=== PATIENT | female | born 1970 | race Two or more races ===

== ENCOUNTER 2018-01-21 08:23 | Emergency (ER) | payer MEDICAID ==
[~2018-01-21] VITALS: Ht 180.3 cm; Wt 63.5 kg
[~2018-01-21 08:23] MED LIST: AUGMENTIN 875-1 EAC1 ORAL; NAPROXEN500 M2 ORAL; NKM; NORCO 5-325 TA1 EACH ORAL
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
[2018-01-21] MEDS ORDERED: Ketorolac 30mg Inj IV ONE (08:45)
[2018-01-21 09:21] LABS: APPEARANCE,URINE CLEAR; BILIRUBIN, URINE NEGATIVE (NEGATIVE); COLOR,URINE PALE YELLOW; GLUCOSE, URINE (UA) NEGATIVE (NEGATIVE); KETONES,URINE 2+ (NEGATIVE); LEUKOCYTE ESTERASE ,URINE 2+ (NEGATIVE); NITRITE,URINE NEGATIVE (NEGATIVE); PH,URINE 5 (4.5-8.0); PROTEIN,URINE NEGATIVE (NEGATIVE); UROBILINOGEN,URINE NORMAL MG/DL (0.0-1.0)
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
[2018-01-21] MEDS ORDERED: cefTRIAXone 1 GM in NS 55 ML IVPB ONE (10:15)
[2018-01-21] MEDS ORDERED: Morphine Sulfate 4mg/ml Inj IVP ONE (10:45)
[2018-01-21] MEDS ORDERED: IBUPROFEN600 MG ORAL (11:27)
[2018-01-21] MEDS ORDERED: KEFLEX500 MG ORAL (11:27)
[2018-01-21] MEDS ORDERED: TRAMADOL HCL50 MG ORAL (11:27)
[2018-01-21 11:43] VITALS: BP 111/77
== END 2018-01-21 11:41 | disposition home or self-care (01) ==
LOC: EMR 08:41
DX: S02.651A Fracture of angle of right mandible, initial encounter for closed fracture (principal); S00.81XA Abrasion of other part of head, initial encounter; Y04.2XXA Assault by strike against or bumped into by another person, initial encounter; Y92.89 Other specified places as the place of occurrence of the external cause; N39.0 Urinary tract infection, site not specified; F19.10 Other psychoactive substance abuse, uncomplicated
CPT/HCPCS: 70450; 70486; 80307; 81001; 81025; 87086; 96361; 96365; 96375; 99284; J0696; J1885; J2270; J2405

== ENCOUNTER 2018-04-03 18:23 | Emergency (ER) | payer MEDICAID ==
[~2018-04-03] VITALS: Ht 180.3 cm; Wt 65.8 kg
[~2018-04-03 18:23] MED LIST changes: +IBUPROFEN600 MG ORAL; +KEFLEX500 MG ORAL; +TRAMADOL HCL50 MG ORAL
[2018-04-03 18:58] VITALS: BP 101/63
[2018-04-03] MEDS ORDERED: Norco 5mg/325mg tab PO ONE (19:00)
--- NOTE | 2018-04-03 19:35 | Diagnostic Imaging Report ---
EXAM: XR Chest, 1 View CLINICAL HISTORY: PAIN TECHNIQUE: Frontal view of the chest. COMPARISON: No relevant prior studies available. FINDINGS: Lungs: Mildly increased interstitial markings. The lungs are otherwise clear without focal consolidation. Pleural space: Unremarkable. No pneumothorax. Heart: Unremarkable. No cardiomegaly. Mediastinum: Unremarkable. Bones/joints: Unremarkable. Tubes, lines and devices: EKG leads overlie the thorax. IMPRESSION: Mildly increased interstitial markings. This is nonspecific and cannot exclude mild pulmonary vascular congestion or mild viral/interstitial pneumonitis.
[2018-04-03 19:44] VITALS: BP 115/62
[2018-04-03] MEDS ORDERED: IBUPROFEN600 MG ORAL (19:45)
[2018-04-03 19:47] VITALS: BP 115/62
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
== END 2018-04-03 19:47 | disposition home or self-care (01) ==
LOC: EMR 19:05
DX: S20.211A Contusion of right front wall of thorax, initial encounter (principal); W22.03XA Walked into furniture, initial encounter; Y92.9 Unspecified place or not applicable
CPT/HCPCS: 71045; 99283

== ENCOUNTER 2018-08-26 13:30 | Emergency (ER) | payer MEDICAID ==
[~2018-08-26] VITALS: Ht 180.3 cm; Wt 68.0 kg
[2018-08-26 13:55] VITALS: BP 102/68
[2018-08-26] MEDS ORDERED: Ketorolac 60mg Inj IM ONE (14:15)
[2018-08-26] MEDS ORDERED: LORazepam 1mg tab ORAL ONE (14:15)
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
[2018-08-26] MEDS ORDERED: IBUPROFEN600 MG ORAL (15:04)
[2018-08-26] MEDS ORDERED: CYCLOBENZAPRINE10 MG ORAL (15:57)
[2018-08-26 16:03] VITALS: BP 102/68
--- NOTE | 2018-08-26 16:37 | Diagnostic Imaging Report ---
Indication: Chest pain Comparison: 04/03/2018 2 views of the chest obtained. Findings: Cardiomediastinal silhouette and pulmonary vascularity are within normal limits for age. The diaphragmatic contour is smooth and costophrenic angles are sharp. No pleural effusions are identified. The bones are unremarkable. Impression: No acute disease
--- NOTE | 2018-08-26 16:37 | Diagnostic Imaging Report ---
Indication: Pain Knee pain/trauma 3 views of the right knee were obtained. Findings: No acute fracture, malalignment, or joint effusion are identified. Joint space is relatively well-maintained. The bones appear osteopenic. Impression: Negative for acute findings.
--- NOTE | 2018-08-26 16:37 | Diagnostic Imaging Report ---
Indication: Back pain Comparison: None Findings: 3 views of the lumbar spine were obtained. No acute fracture or malalignment is identified. Vertebral body heights and disk spaces are well maintained. Posterior elements are unremarkable. Impression: No acute findings.
== END 2018-08-26 16:04 | disposition home or self-care (01) ==
LOC: EMR 14:00
DX: M25.561 Pain in right knee (principal); V13.4XXA Pedal cycle driver injured in collision with car, pick-up truck or van in traffic accident, initial encounter; Y93.55 Activity, bike riding; Y92.410 Unspecified street and highway as the place of occurrence of the external cause; F31.9 Bipolar disorder, unspecified; F41.9 Anxiety disorder, unspecified
CPT/HCPCS: 71046; 72020; 81025; 96372; 99284

== ENCOUNTER 2019-01-11 10:10 | Emergency (ER) | payer MEDICAID ==
[~2019-01-11] VITALS: Ht 180.3 cm; Wt 59.0 kg
[~2019-01-11 10:10] MED LIST changes: +CYCLOBENZAPRINE10 MG ORAL
--- NOTE | 2019-01-11 10:13 | NUR ---
ED Nurse Note: CALLED PT FROM WAITING ROOM. PT NOT PRESENT.
[2019-01-11] MEDS ORDERED: NKM (10:20)
--- NOTE | 2019-01-11 10:28 | NUR ---
ED Nurse Note: Pt came into the ER w/ complaints of chest pain since this morning. Pt states that the pain is radiating to her lower back. Rating the pain an 8/10. Pt is also complaining of rt face swelling x 2 days. A +O x4. Ambulatory. Skin warm to touch. A marijuana smell is coming from the pt. Pt states that she smokes.
[2019-01-11 10:30] VITALS: BP 112/75
[2019-01-11] MEDS ORDERED: Augmentin 875mg Tab ORAL ONE (10:45)
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
[2019-01-11] MEDS ORDERED: AUGMENTIN 875-1 EAC1 ORAL (11:02)
[2019-01-11 11:13] VITALS: BP 104/77
--- NOTE | 2019-01-11 11:14 | NUR ---
ER DISCHARGE NOTE: Patient is cleared to be discharged per ERMD, pt is aox4, on room air, with stable vital signs. pt was given dc and prescription instructions, pt was able to verbalize understanding, pt id band removed without complications. pt is able to ambulate with steady gait. pt took all belongings.
--- NOTE | 2019-01-12 16:06 | Cardiology Report ---
APPROVED REPORT EKG Measurement Heart [id number] MT [id number] [id number] Normal sinus rhythm Normal ECG
== END 2019-01-11 11:14 | disposition home or self-care (01) ==
LOC: EMR 11:01
DX: B30.9 Viral conjunctivitis, unspecified (principal); R07.89 Other chest pain
CPT/HCPCS: 93005; 99283

== ENCOUNTER 2019-07-05 09:22 | Emergency (ER) | payer MEDICAID ==
[~2019-07-05] VITALS: Ht 180.3 cm; Wt 65.8 kg
--- NOTE | 2019-07-05 09:26 | NUR ---
ED Nurse Note: Patient in restroom.
[2019-07-05 09:30] VITALS: BP 117/70
--- NOTE | 2019-07-05 09:30 | NUR ---
ED Nurse Note: pt walked in to ED due to lower back pain since yesterday. pt denies any injury or urinary problem. pt c/o frequent urination. per pt, lifted heavy objects at work. ambulatory with steady gait. came with friend. AAO x4. respirations even and non-labored noted. will wait for the further order.
[2019-07-05] MEDS ORDERED: Ketorolac 60mg Inj IM ONE (10:00)
[2019-07-05 10:36] LABS: APPEARANCE,URINE SLIGHTLY CLOUDY; BILIRUBIN, URINE NEGATIVE (NEGATIVE); COLOR,URINE AMBER; GLUCOSE, URINE (UA) NEGATIVE (NEGATIVE); KETONES,URINE NEGATIVE (NEGATIVE); LEUKOCYTE ESTERASE ,URINE 1+ (NEGATIVE); NITRITE,URINE NEGATIVE (NEGATIVE); PH,URINE 6 (4.5-8.0); PROTEIN,URINE 1+ (NEGATIVE); UROBILINOGEN,URINE 4 MG/DL (0.0-1.0)
--- NOTE | 2019-07-05 10:39 | Emergency Room Report ---
History of Present Illness General Chief Complaint: Lower Back Pain or Injury Source: Patient Present Illness HPI The patient presents with increased back pain. She denies any significant trauma. 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 She has had intermittent pain. She has been evaluated for this pain in the past with x-rays that were apparently normal. Patient denies any fevers, dysuria. Her periods are irregular but the last one was normal for her. She does not believe she is . Pain radiates somewhat down her left leg. She denies weakness or numbness. There is no saddle paresthesias and she denies incontinence of urine or stool. She is not taking of blood thinner, no IV drug abuse, no oncologic problems. She denies dysuria. Her significant other says that she does not drink enough water. 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 Last Menstrual Period: 06/29/19 Reviewed Nursing Documentation: PMH: Agreed; PSxH: Agreed Nursing Documentation-PMH Past Medical History: No Stated History Review of Systems Constitutional: Reports: see HPI Cardiovascular: Denies: chest pain Gastrointestinal: Denies: abdominal pain Genitourinary: Reports: see HPI Musculoskeletal: Reports: see HPI Skin: Denies: rash Neurological: Reports: see HPI Hematologic/Lymphatic: Reports: see HPI Physical Exam Vital Signs Date Time Temp Pulse Resp B/P (MAP) Pulse Ox O2 Delivery O2 Flow Rate FiO2 07/05/19 09:30 97.5 73 18 117/70 (86) 98 Room Air Sp02 EP Interpretation: reviewed, normal General Appearance: well appearing, no apparent distress, GCS 15 Head: normocephalic, atraumatic Eyes: bilateral eye normal inspection, bilateral eye PERRL, bilateral eye EOMI ENT: moist mucus membranes Neck: supple Respiratory: lungs clear, normal breath sounds Cardiovascular #1: regular rate, rhythm Cardiovascular #2: 2+ radial (R) Gastrointestinal: normal inspection, normal bowel sounds, non tender, no mass, non-distended Genitourinary: no CVA tenderness Musculoskeletal: gait/station normal, normal range of motion, tender - Lumbar area with paraspinous spasm. Straight leg raise positive for increased back pain on the left-hand side. No paresthesias or referred pain down the leg. No crossover pain with straight leg raise on the right Neurologic: alert, oriented x3, motor strength/tone normal, DTRs symmetric, sensory intact, cerebellar normal, normal gait, speech normal Psychiatric: mood/affect normal Skin: no rash Medical Decision Making Diagnostic Impression: Primary Impression: Lumbar pain Additional Impression: UTI (urinary tract infection) Qualified Codes: N30.00 - Acute cystitis without hematuria ER Course Patient presents with exacerbation of lumbar pain. There are no red flag symptoms. She has had normal x-rays in the past. Differential includes degenerative disc disease, sciatica, exacerbation of chronic back pain, back strain, UTI amongst others. Patient will be evaluated with urinalysis. She will be treated with a shot of Toradol and given a pill of Soma. Urinalysis with pyuria. Macrobid begun. Patient improved with treatment. Ambulatory without difficulty and able to sit and stand without limitation. Discussed results with patient. Advised to physical therapy and back exercises can help. She was advised to follow-up with her own doctor. Patient stable for outpatient observation and treatment. Laboratory Tests Test 07/05/19 10:11 Urine Color Evelyn Urine Appearance Slightly cloudy Urine pH 6 (4.5-8.0) Urine Specific [place] 1.020 (1.005-1.035) Urine Protein 1+ (NEGATIVE) H Urine Glucose (UA) Negative (NEGATIVE) Urine Ketones Negative (NEGATIVE) Urine Blood 4+ (NEGATIVE) H Urine Nitrite Negative (NEGATIVE) Urine Bilirubin Negative (NEGATIVE) Urine Ictotest Negative (NEGATIVE) Urine Urobilinogen 4 MG/DL (0.0-1.0) H Urine Leukocyte Esterase 1+ (NEGATIVE) H Urine RBC 10-15 /HPF (0 - 2) H Urine WBC 10-15 /HPF (0 - 2) H Urine Squamous Epithelial Cells Many /LPF (NONE/OCC) H Urine Bacteria Few /HPF (NONE) Urine HCG, Qualitative Negative (NEGATIVE) Last Vital Signs Date Time Temp Pulse Resp B/P (MAP) Pulse Ox O2 Delivery O2 Flow Rate FiO2 07/05/19 11:41 98.1 70 16 121/71 99 Room Air Status: improved Disposition: HOME, SELF-CARE Condition: Improved Scripts Ibuprofen* (MOTRIN*) 600 Mg Tablet 600 MG ORAL Q6H PRN for For Pain, #20 TAB 0 Refills Prov: Basil Mckenzie MD 07/05/19 Acetaminophen With Codeine (T#3) (TYLENOL #3 TAB*) Y Tab 1 TAB ORAL Q6HR PRN for For Pain, #10 TAB Prov: Basil Mckenzie MD 07/05/19 Methocarbamol* (ROBAXIN*) 500 Mg Tablet 500 MG PO TID PRN for spasms, #10 TAB 0 Refills Prov: Basil Mckenzie MD 07/05/19 Nitrofurantoin Monohyd/M-Cryst* (MACROBID 100 MG*) 100 Mg Capsule 100 MG ORAL EVERY 12 HOURS, #14 CAP Prov: Basil Mckenzie MD 07/05/19 Basil Mckenzie MD Jul 05, 2019 10:39
[2019-07-05] MEDS ORDERED: ACETAMINOPHEN-1 EAC1 ORAL (11:34)
[2019-07-05] MEDS ORDERED: IBUPROFEN600 MG ORAL (11:34)
[2019-07-05] MEDS ORDERED: NITROFURANTOIN100 M2 ORAL (11:34)
[2019-07-05] MEDS ORDERED: ROBAXIN500 MG PO (11:34)
[2019-07-05 11:41] VITALS: BP 121/71
--- NOTE | 2019-07-05 11:42 | NUR ---
ER DISCHARGE NOTE: Patient is cleared to be discharged per ERMD with family member, pt is aox4, on room air, with stable vital signs. pt was given dc and prescription instructions, pt was able to verbalize understanding, pt id band removed without complications. pt is able to ambulate with steady gait. pt took all belongings.
== END 2019-07-05 11:43 | disposition home or self-care (01) ==
LOC: EMR 10:20
DX: M54.5 Low back pain (principal); N30.00 Acute cystitis without hematuria; M79.605 Pain in left leg; F17.200 Nicotine dependence, unspecified, uncomplicated
CPT/HCPCS: 81003; 81025; 87086; 96372; 99283

== ENCOUNTER 2019-07-10 17:39 | Emergency (ER) | payer MEDICAID ==
[~2019-07-10] VITALS: Ht 180.3 cm; Wt 68.0 kg
[~2019-07-10 17:39] MED LIST changes: +ACETAMINOPHEN-1 EAC1 ORAL; +NITROFURANTOIN100 M2 ORAL; +ROBAXIN500 MG PO
[2019-07-10] MEDS ORDERED: NKM (17:48)
[2019-07-10 17:50] VITALS: BP 143/88
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
--- NOTE | 2019-07-10 18:20 | NUR ---
ED Nurse Note: pt medicated as ordered. pt able to tolerate meds. will continue to monitor.
[2019-07-10] MEDS ORDERED: BACITRACIN15 GM TOPIC (18:26)
[2019-07-10] MEDS ORDERED: TYLENOL EXTRA500 MG ORAL (18:26)
[2019-07-10] MEDS ORDERED: AMOXICILLIN500 MG ORAL (18:26)
[2019-07-10] MEDS ORDERED: Acetaminophen 500mg (ES) tab ORAL ONE (18:30)
[2019-07-10] MEDS ORDERED: Neosporin Oint Ud Pkt TOPIC ONE (18:30)
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
== END 2019-07-10 18:34 | disposition home or self-care (01) ==
LOC: EMR 18:34
DX: S00.33XA Contusion of nose, initial encounter (principal); S01.511A Laceration without foreign body of lip, initial encounter; Y04.8XXA Assault by other bodily force, initial encounter
CPT/HCPCS: 99283

== ENCOUNTER 2020-11-22 10:15 | Emergency (ER) | payer MEDICAID, OTHER ==
[~2020-11-22] VITALS: Ht 180.3 cm; Wt 68.0 kg
[~2020-11-22 10:15] MED LIST changes: +AMOXICILLIN500 MG ORAL; +BACITRACIN15 GM TOPIC; +TYLENOL EXTRA500 MG ORAL
--- NOTE | 2020-11-22 10:37 | Emergency Room Report ---
History of Present Illness General Chief Complaint: Flu Like Symptoms Source: Patient Present Illness HPI Patient is a 50-year-old female presents for increased generalized body aches cough and chest pain. Patient reports of increased cough as well as generalized body aches and headache. Increased nausea and vomiting. Associated decreased appetite. Reports recent cocaine use. Patient is currently a cigarette smoker. Denies any prior medical history. Allergies: Coded Allergies: No Known Allergies (Unverified , 01/11/19) COVID-19 Screening Contact w/high risk pt: No Experienced COVID-19 symptoms?: Yes COVID-19 Testing performed V[employer]OCK GRADER: No Patient History Past Medical History: see triage record Last Menstrual Period: currently on her period Reviewed Nursing Documentation: PMH: Agreed; PSxH: Agreed Nursing Documentation-PMH Past Medical History: No Stated History Review of Systems All Other Systems: negative except mentioned in HPI Physical Exam Vital Signs Date Time Temp Pulse Resp B/P (MAP) Pulse Ox O2 Delivery O2 Flow Rate FiO2 11/22/20 10:19 102.9 135 19 117/76 (90) 93 Room Air General Appearance: alert, GCS 15, non-toxic, Chronically Ill Cardiovascular #1: normal inspection, regular rate, rhythm Gastrointestinal: normal inspection, non tender, soft Musculoskeletal: normal inspection, back normal Neurologic: alert, motor strength/tone normal, workplace relations adviser III-XII nml as tested, oriented x3 Medical Decision Making Diagnostic Impression: Primary Impression: Acute febrile illness Additional Impressions: Substance abuse UTI (urinary tract infection) Pneumonitis ER Course Patient presented for fever and increased cough. Differential diagnosis include was not limited to pneumonia, coronavirus infection, pulmonary infarction, urinary tract infection, sepsis among others. Patient noted to be initially tac hycardic and febrile with a heart rate approximately 130s. Patient does report having recent cocaine use which is likely contributing to the patient's tachycardia. Patient started on IV fluids as well as IV antibiotics. Blood cultures were obtained. Labs Test 11/22/20 10:51 11/22/20 11:13 White Blood Count 23.2 K/UL (4.8-10.8) Red Blood Count 4.22 M/UL (4.20-5.40) Hemoglobin 11.6 G/DL (12.0-16.0) Hematocrit 36.0 % (37.0-47.0) Mean Corpuscular Volume 85 FL (80-99) Mean Corpuscular Hemoglobin 27.6 PG (27.0-31.0) Mean Corpuscular Hemoglobin Concent 32.3 G/DL (32.0-36.0) Red Cell Distribution Width 15.2 % (11.6-14.8) Platelet Count 359 K/UL (150-450) Mean Platelet Volume 6.1 FL (6.5-10.1) Neutrophils (%) (Auto) % (45.0-75.0) Lymphocytes (%) (Auto) % (20.0-45.0) Monocytes (%) (Auto) % (1.0-10.0) Eosinophils (%) (Auto) % (0.0-3.0) Basophils (%) (Auto) % (0.0-2.0) Prothrombin Time 10.6 SEC (9.30-11.50) Prothromb Time International Ratio 1.0 (0.9-1.1) Activated Partial Thromboplast Time 27 SEC (23-33) D-Dimer 1.94 mg/L FEU (0.00-0.49) Sodium Level 130 MMOL/L (136-145) Potassium Level 3.1 MMOL/L (3.5-5.1) Chloride Level 94 MMOL/L (98-107) Carbon Dioxide Level 29 MMOL/L (21-32) Anion Gap 7 mmol/L (5-15) Blood Urea Nitrogen 10 mg/dL (7-18) Creatinine 1.0 MG/DL (0.55-1.30) Estimat Glomerular Filtration Rate > 60 mL/min (>60) Glucose Level 119 MG/DL (74-106) Lactic Acid Level 1.20 mmol/L (0.4-2.0) Calcium Level 8.7 MG/DL (8.5-10.1) Ferritin 275 NG/ML (8-388) Total Bilirubin 2.6 MG/DL (0.2-1.0) Direct Bilirubin 0.8 MG/DL (0.0-0.3) Aspartate Amino Transf (AST/SGOT) 19 U/L (15-37) Alanine Aminotransferase (ALT/SGPT) 13 U/L (12-78) Alkaline Phosphatase 132 U/L (46-116) Lactate Dehydrogenase 175 U/L (81-234) Total Creatine Kinase 42 U/L (26-308) Creatine Kinase MB < 0.5 NG/ML (0.0-3.6) Creatine Kinase MB Relative Index 1.1 Troponin I 0.000 ng/mL (0.000-0.056) C-Reactive Protein, Quantitative 64.1 mg/dL (0.00-0.90) Pro-B-Type Natriuretic Peptide 191 pg/mL (0-125) Total Protein 8.7 G/DL (6.4-8.2) Albumin 2.6 G/DL (3.4-5.0) Globulin 6.1 g/dL Albumin/Globulin Ratio 0.4 (1.0-2.7) Lipase 72 U/L (73-393) Urine Color Yellow Urine Appearance Slightly cloudy Urine pH 6 (4.5-8.0) Urine Specific [place] 1.015 (1.005-1.035) Urine Protein 4+ (NEGATIVE) Urine Glucose (UA) Negative (NEGATIVE) Urine Ketones 2+ (NEGATIVE) Urine Blood 5+ (NEGATIVE) Urine Nitrite Positive (NEGATIVE) Urine Bilirubin 2+ (NEGATIVE) Urine Ictotest Negative (NEGATIVE) Urine Urobilinogen 12 MG/DL (0.0-1.0) Urine Leukocyte Esterase 2+ (NEGATIVE) Urine RBC 2-4 /HPF (0 - 2) Urine WBC 10-15 /HPF (0 - 2) Urine Squamous Epithelial Cells Few /LPF (NONE/OCC) Urine Bacteria Few /HPF (NONE) EKG Diagnostic Results Rate: tachycardiac - Sinus tachycardia with a rate of [address] or T wave changes noted Rhythm: NSR ST Segments: no acute changes Last Vital Signs Date Time Temp Pulse Resp B/P (MAP) Pulse Ox O2 Delivery O2 Flow Rate FiO2 11/22/20 10:19 102.9 135 19 117/76 (90) 93 Room Air Status: unchanged Disposition: ADMITTED INPATIENT Condition: Stable Enoch Henderson MD Nov 22, 2020 10:37
--- NOTE | 2020-11-22 10:45 | NUR ---
ED Nurse Note: Pt walked into the ed due to cough,fever,bodyache and loss of appetite x 4 days. pt stated;she used marijuana and cocaine last night. pt is on monitor; HR 126 O2 98 RR 32 Bp 126/78 . A&Ox4, verbal and no sob. Iv started, blood drawn and sent to the lab. Covid 19 and urine sent to the lab. we will keep monitoring the pt.
[2020-11-22 10:50] VITALS: BP 125/78
[2020-11-22] MEDS: cefTRIAXone 1 GM in NS 55 ML IV ONE (10:57)
[2020-11-22] MEDS: LORazepam Inj 2mg/ml 1ml IV ONE (10:57)
[2020-11-22] MEDS: Acetaminophen 500mg (ES) tab ORAL ONE (10:58)
[2020-11-22] MEDS: Azithromycin 500 MG in NS 275 ML IVPB ONE (11:09)
[2020-11-22 11:28] LABS: HEMOGLOBIN 11.6 G/DL (12.0-16.0); MEAN CORPUSCULAR VOLUME 85 FL (80-99); PLATELET COUNT 359 K/UL (150-450); RED BLOOD COUNT 4.22 M/UL (4.20-5.40); RED CELL DISTRIBUTION WIDTH 15.2 % (11.6-14.8)
[2020-11-22 11:36] LABS: WHITE BLOOD COUNT 23.2 K/UL (4.8-10.8)
[2020-11-22 11:40] LABS: APPEARANCE,URINE SLIGHTLY CLOUDY; BILIRUBIN, URINE 2+ (NEGATIVE); GLUCOSE, URINE (UA) NEGATIVE (NEGATIVE); KETONES,URINE 2+ (NEGATIVE); LEUKOCYTE ESTERASE ,URINE 2+ (NEGATIVE); NITRITE,URINE POSITIVE (NEGATIVE); PH,URINE 6 (4.5-8.0); PROTEIN,URINE 4+ (NEGATIVE); UROBILINOGEN,URINE 12 MG/DL (0.0-1.0)
[2020-11-22 12:06] LABS: COLOR,URINE YELLOW
[2020-11-22 12:15] LABS: ANION GAP 7 mmol/L (5-15); BLOOD UREA NITROGEN 10 mg/dL (7-18); CALCIUM 8.7 MG/DL (8.5-10.1); CARBON DIOXIDE 29 MMOL/L (21-32); CHLORIDE 94 MMOL/L (98-107); POTASSIUM 3.1 MMOL/L (3.5-5.1); SODIUM 130 MMOL/L (136-145)
[2020-11-22 12:31] LABS: ALANINE AMINOTRANSFERASE 13 U/L (12-78); ALBUMIN 2.6 G/DL (3.4-5.0); ALBUMIN/GLOBULIN RATIO 0.4 (1.0-2.7); ALKALINE PHOSPHATASE 132 U/L (46-116); ASPARTATE AMINO TRANSFERASE 19 U/L (15-37); BILIRUBIN,TOTAL 2.6 MG/DL (0.2-1.0); CKMB < 0.5 NG/ML (0.0-3.6); CREATINE KINASE 42 U/L (26-308); FERRITIN 275 NG/ML (8-388); LACTATE DEHYDROGENASE 175 U/L (81-234)
[2020-11-22 12:53] LABS: BILIRUBIN,DIRECT 0.8 MG/DL (0.0-0.3)
[2020-11-22] MEDS ORDERED: CEPHALEXIN250 MG/5 M ORAL (14:27)
--- NOTE | 2020-11-22 14:36 | NUR ---
ED Nurse Note: Report given to Hillary OLIVAS.
--- NOTE | 2020-11-22 14:47 | Diagnostic Imaging Report ---
Indication: Shortness of breath Technique: One view of the chest Comparison: 08/26/2018 Findings: Infiltrate is seen in the right mid and lower lung periphery. The left lung and bilateral pleural spaces appear to be clear. Normal heart size. No significant interim change Impression: Right mid and lower lung infiltrate, likely pneumonia
[2020-11-22 16:12] VITALS: BP 121/84
--- NOTE | 2020-11-22 16:12 | NUR ---
TRANSFER: Patient transferred to [facility] via [facility] accomapnied by 2 EMT. Pt AAOx4, verbally responsive, on room air. IV line in right Ac 20g patent and intact. No skin issues. All belongings sent with the patient.
== END 2020-11-22 16:12 | disposition home or self-care (01) ==
LOC: EMR 10:53
DX: J18.9 Pneumonia, unspecified organism (principal); N39.0 Urinary tract infection, site not specified; R50.9 Fever, unspecified; F14.10 Cocaine abuse, uncomplicated
CPT/HCPCS: 36415; 71045; 80053; 81003; 82248; 82550; 82553; 82728; 83605; 83615; 83690; 83880; 84484; 85007; 85025; 85379; 85610; 85730; 86140; 87086; 93005; 96361; 96365; 96367; 96375; J0456; J0696; J7050; U0002; Z7502; 99285